=== PATIENT | male | born 1995 | race Two or more races ===

== ENCOUNTER 2018-08-18 19:29 | Emergency (ER) | payer SELFPAY ==
[~2018-08-18] VITALS: Ht 170.2 cm; Wt 65.8 kg
[2018-08-18 19:42] VITALS: BP 121/63
[2018-08-18] MEDS ORDERED: diphenhydrAMINE HCL 50 MG CAPSULE PO ONE (20:00)
[2018-08-18] MEDS ORDERED: diphenhydrAMINE HCL 50 MG CAPSULE ONE (20:06)
== END 2018-08-18 20:43 ==
LOC: ER 19:31
DX: B86 Scabies (principal); B85.2 Pediculosis, unspecified
CPT/HCPCS: Q0163